=== PATIENT | female | born 2000 | race Two or more races ===

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

== ENCOUNTER 2023-06-10 00:15 | Emergency (ER) | payer MEDICAID ==
[~2023-06-10] VITALS: Ht 154.9 cm; Wt 50.3 kg
[~2023-06-10 00:15] MED LIST: ACET500T58 PO; ONDA-144 PO; SULF800T23 PO
[2023-06-10] MEDS ORDERED: IOHEXOL 300 MG/ML 100ML BOTTLE IJ ONE (01:27)
[2023-06-10 01:36] LABS: Albumin 4.5 g/dL (3.2-4.8); Alkaline Phosphatase 70 U/L (46-116); Anion Gap 8 (5-15); Aspartate Aminotransferase 13 U/L (13-40); BUN/Creatinine Ratio 9.4 (10.0-20.0); Bilirubin, Total 0.3 mg/dL (0.2-1.0); Blood Urea Nitrogen 6 mg/dL (9-23); Calcium 8.7 mg/dL (8.7-10.4); Carbon Dioxide 23 mmol/L (20-30); Chloride 106 mmol/L (98-107); Glucose 92 mg/dL (74-106); Lipase 51 U/L (12-53); Magnesium 1.9 mg/dL (1.6-2.6); Potassium 3.4 mmol/L (3.5-5.1); Sodium 137 mmol/L (136-145)
[2023-06-10 01:40] LABS: Alanine Aminotransferase 9 U/L (7-40)
[2023-06-10 01:48] LABS: Urine Bacteria FEW /hpf (None Seen); Urine Blood Negative /uL (Negative); Urine Clarity Clear (Clear); Urine Color Colorless (Yellow); Urine Protein, UAD Negative (Negative); Urine Specific Gravity 1.007 (1.001-1.035); Urine Urobilinogen Normal (Negative); Urine WBC 1 /hpf (0 - 5); Urine pH 6.5 (5.0-8.0)
[2023-06-10 01:52] LABS: Basophils # (auto) 0 10 ^3/uL (0-0.2); Basophils % (auto) 0.4 % (0.0-2.0); Eosinophils # (auto) 0.1 10 ^3/uL (0-0.8); Hematocrit 33.4 % (36.0-46.0); Lymphocytes # (auto) 1.8 10 ^3/uL (0.4-5.4); Lymphocytes % (auto) 20.7 % (10.0-50.0); Mean Corpuscular Hemoglobin 25.2 pg (28.0-32.0); Mean Corpuscular Volume 76.4 fL (80.0-100.0); Monocytes # (auto) 0.7 10 ^3/uL (0-1.3); Monocytes % (auto) 7.8 % (0.0-12.0); Neutrophils # (auto) 5.9 10 ^3/uL (1.6-8.6); Neutrophils % (auto) 70.1 % (37.0-80.0); Red Blood Cells 4.37 10^6/uL (4.0-5.20); Red Cell Distribution Width 17.5 % (11.8-14.3); White Blood Cell 8.5 10^3/uL (4.4-10.8)
[2023-06-10 02:31] VITALS: BP 141/95; PULSE 71; RESP 18; TEMP 97.8; O2SAT 97
[2023-06-10] MEDS ORDERED: POTASSIUM CHL 10 Meq TABLET PO ONE (04:15)
[2023-06-10] MEDS ORDERED: IBUP-1456 PO (04:35)
[2023-06-10] MEDS ORDERED: POLY335015 PO (04:35)
== END 2023-06-10 06:27 | disposition home or self-care (01) ==
LOC: ER 00:21
DX: N83.202 Unspecified ovarian cyst, left side (principal); R10.2 Pelvic and perineal pain; K59.01 Slow transit constipation; Z79.899 Other long term (current) drug therapy
CPT/HCPCS: 36415; 74177; 80053; 81001; 83690; 83735; 84702; 85025; 99285; Q9967

== ENCOUNTER 2024-03-03 06:34 | Inpatient (IN) | payer MEDICAID ==
[~2024-03-03] VITALS: Ht 154.9 cm; Wt 46.7 kg
[~2024-03-03 06:34] MED LIST changes: +IBUP-1456 PO; +POLY335015 PO
[2024-03-03 07:21] LABS: Basophils # (auto) 0 10 ^3/uL (0-0.2); Eosinophils # (auto) 0 10 ^3/uL (0-0.8); Eosinophils % (auto) 0.1 % (0.0-7.0); Hemoglobin 10.4 g/dL (12.2-16.2)
[2024-03-03 07:22] LABS: Urine Bacteria None Seen /hpf (None Seen)
[2024-03-03 07:23] LABS: Basophils % (auto) 0.3 % (0.0-2.0); Hematocrit 32.5 % (36.0-46.0); Lymphocytes # (auto) 0.8 10 ^3/uL (0.4-5.4); Lymphocytes % (auto) 4.9 % (10.0-50.0); Mean Corpuscular Hemoglobin 24.4 pg (28.0-32.0); Mean Corpuscular Hgb Conc. 32.1 g/dL (32.0-36.0); Mean Corpuscular Volume 76.2 fL (80.0-100.0); Monocytes # (auto) 0.6 10 ^3/uL (0-1.3); Monocytes % (auto) 3.8 % (0.0-12.0); Neutrophils # (auto) 15.2 10 ^3/uL (1.6-8.6); Neutrophils % (auto) 90.9 % (37.0-80.0); Red Blood Cells 4.27 10^6/uL (4.0-5.20); White Blood Cell 16.7 10^3/uL (4.4-10.8)
[2024-03-03] MEDS: SODIUM CHLORIDE 0.9% 1,000 ML IV ONE ×2 (07:35→09:38)
[2024-03-03 07:40] LABS: Amphetamine Screen, Urine Neg (NEGATIVE); Barbiturate Scree,Urine Neg (NEGATIVE); Benzodiazephine Screen, Urine Neg (NEGATIVE); Cannabinoid Screen, Urine Neg (NEGATIVE); Cocaine Screen, Urine Neg (NEGATIVE); Opiate Scree,Urine Neg (NEGATIVE); Phencyclidine Screen, Urine Neg (NEGATIVE)
[2024-03-03 07:43] LABS: Alanine Aminotransferase 12 U/L (7-40); Albumin 4.6 g/dL (3.2-4.8); Alkaline Phosphatase 85 U/L (46-116); Anion Gap 7 (5-15); Aspartate Aminotransferase 11 U/L (13-40); BUN/Creatinine Ratio 9.8 (10.0-20.0); Bilirubin, Total 0.3 mg/dL (0.2-1.0); Blood Urea Nitrogen 6 mg/dL (9-23); Calcium 8.9 mg/dL (8.7-10.4); Carbon Dioxide 24 mmol/L (20-30); Chloride 108 mmol/L (98-107); Glucose 111 mg/dL (74-106); Potassium 3.4 mmol/L (3.5-5.1); Sodium 139 mmol/L (136-145)
[2024-03-03 07:44] LABS: Total Protein 7.6 g/dL (5.7-8.2)
[2024-03-03 07:44] LABS: Urine Blood Negative /uL (Negative); Urine Clarity Clear (Clear); Urine Color Light-Yellow (Yellow); Urine Mucus FEW (None Seen); Urine Protein, UAD Negative (Negative); Urine Specific Gravity 1.011 (1.001-1.035); Urine Urobilinogen Normal (Negative); Urine WBC <1 /hpf (0 - 5)
[2024-03-03] MEDS: IOHEXOL 300 MG/ML 100ML BOTTLE IJ ONE (08:23)
[2024-03-03] MEDS: DOXYCYCLINE 100MG/250ML 250 ML IV ONE (08:45)
[2024-03-03] MEDS: KETOROLAC TROMETH 30 MG/ML 1ML VIAL IV ONE (08:57)
[2024-03-03] MEDS: metroNIDAZOLE 500MG/100ML 100 ML IV ONE (09:00)
[2024-03-03] MEDS: cefTRIAXone 1GM/50ML D5W 50 ML IV ONE (09:39)
[2024-03-03 09:53] VITALS: PULSE 97; RESP 12; O2SAT 97
[2024-03-03] MEDS: MORPHINE SULFATE INJ 2 MG/ml SYRG IV ONE (13:10)
[2024-03-03] MEDS: ONDANSETRON HCL 4 MG/2 ML VIAL IV ONE (13:11)
[2024-03-03] MEDS ORDERED: DOCUSATE SOD 100 MG CAP PO PRN (13:30)
[2024-03-03] MEDS ORDERED: MORPHINE SULFATE INJ 2 MG/ml SYRG IV PRN (13:30)
[2024-03-03] MEDS ORDERED: DOXYCYCLINE 100MG/250ML 250 ML IV SCH (13:30)
[2024-03-03] MEDS ORDERED: NITROGLYCERIN 0.4 MG SL TAB SL PRN (13:30)
[2024-03-03] MEDS: SODIUM CHLORIDE 0.9% 1,000 ML IV SCH (13:43)
[2024-03-03] MEDS: POTASSIUM EFFERVESENT TAB 25 MEQ PO ONE (13:49)
[2024-03-03] MEDS: metroNIDAZOLE 500MG/100ML 100 ML IV SCH (14:06)
[2024-03-03 14:22] LABS: % Iron Saturation 3.7 % (15-50)
[2024-03-03 17:20] VITALS: BP 100/59; PULSE 105; RESP 16; TEMP 98.4; O2SAT 99
[2024-03-03] MEDS: ONDANSETRON HCL 4 MG/2 ML VIAL IV PRN (17:39)
[2024-03-03] MEDS: MORPHINE SULFATE INJ 2 MG/ml SYRG IV PRN (17:40)
[2024-03-03 21:00] VITALS: BP 103/55; PULSE 107; RESP 20; TEMP 98; O2SAT 98
[2024-03-03] MEDS: DOXYCYCLINE 100MG/250ML 250 ML IV SCH (21:47)
[2024-03-04 00:54] VITALS: BP 113/61; PULSE 98; RESP 20; TEMP 98; O2SAT 96
[2024-03-04 05:00] VITALS: BP 100/51; PULSE 54; RESP 20; TEMP 98.2; O2SAT 100
[2024-03-04 05:55] LABS: Basophils # (auto) 0 10 ^3/uL (0-0.2); Eosinophils # (auto) 0 10 ^3/uL (0-0.8); Hemoglobin 8.8 g/dL (12.2-16.2); Lymphocytes # (auto) 1.2 10 ^3/uL (0.4-5.4); Monocytes # (auto) 0.7 10 ^3/uL (0-1.3); Monocytes % (auto) 6.2 % (0.0-12.0); Red Cell Distribution Width 16.8 % (11.8-14.3)
[2024-03-04 05:58] LABS: Basophils % (auto) 0.1 % (0.0-2.0); Eosinophils % (auto) 0.2 % (0.0-7.0); Hematocrit 27.1 % (36.0-46.0); Mean Corpuscular Hgb Conc. 32.5 g/dL (32.0-36.0); Mean Corpuscular Volume 76.9 fL (80.0-100.0); Neutrophils # (auto) 9.7 10 ^3/uL (1.6-8.6); Neutrophils % (auto) 83.5 % (37.0-80.0); Red Blood Cells 3.53 10^6/uL (4.0-5.20); White Blood Cell 11.7 10^3/uL (4.4-10.8)
[2024-03-04 06:09] LABS: Albumin 3.6 g/dL (3.2-4.8); Alkaline Phosphatase 65 U/L (46-116); Anion Gap 5 (5-15); Aspartate Aminotransferase 13 U/L (13-40); Calcium 8.4 mg/dL (8.5-10.1); Carbon Dioxide 24 mmol/L (20-30); Chloride 111 mmol/L (98-107); Glucose 87 mg/dL (74-106); Potassium 3.5 mmol/L (3.5-5.1); Sodium 140 mmol/L (136-145)
[2024-03-04 06:10] LABS: Bilirubin, Total 0.7 mg/dL (0.2-1.0); Total Protein 5.7 g/dL (5.7-8.2)
[2024-03-04 06:45] LABS: Alanine Aminotransferase < 9 U/L (7-40); BUN/Creatinine Ratio 9.4 (10.0-20.0); Blood Urea Nitrogen < 5 mg/dL (9-23)
[2024-03-04] MEDS: metroNIDAZOLE 500MG/100ML 100 ML IV SCH (08:14)
[2024-03-04 09:00] VITALS: BP 108/63; PULSE 111; RESP 17; TEMP 98.3; O2SAT 98
[2024-03-04 13:00] VITALS: BP 99/59; PULSE 90; RESP 16; TEMP 97.9; O2SAT 99
[2024-03-04] MEDS: cefTRIAXone 1GM/50ML D5W 50 ML IV SCH (13:45)
[2024-03-04 17:00] VITALS: BP 107/65; PULSE 96; RESP 16; TEMP 97.9; O2SAT 99
[2024-03-04 21:32] VITALS: BP 112/58; PULSE 94; RESP 16; TEMP 98.4; O2SAT 99
[2024-03-05] VITALS (7 sets, daily range): BP systolic 95–107; BP diastolic 54–69; PULSE 77–92; RESP 16–18; TEMP 97.8–98.2; O2SAT 98–100
[2024-03-05] MEDS: MORPHINE SULFATE INJ 2 MG/ml SYRG IV PRN (08:16)
[2024-03-05 12:59] LABS: Ferritin 9.5 ng/mL (10-291)
[2024-03-05 13:01] LABS: Folate (Folic Acid) 9.08 ng/mL (>5.38)
[2024-03-05 20:06] LABS: Chlamydia Trachomatis, NAA Negative (Negative); Neisseria gonorrhoeae, NAA Negative (Negative)
[2024-03-06 01:07] VITALS: BP 134/71; PULSE 73; RESP 18; TEMP 97.8; O2SAT 99
[2024-03-06 05:13] VITALS: BP 110/65; PULSE 93; RESP 18; TEMP 97.9; O2SAT 97
[2024-03-06 09:00] VITALS: BP 103/56; PULSE 97; RESP 17; TEMP 98.1; O2SAT 96
[2024-03-06 13:00] VITALS: BP 100/61; PULSE 84; RESP 17; TEMP 98.3; O2SAT 98
== END 2024-03-06 15:00 | disposition left against medical advice (07) | DRG 248 ==
LOC: ER 06:34 → OVERFLOW 13:26 → CENTRAL 17:00
PROVIDERS: ADMIT Nurse Practitioner Family; ATTEND Internal Medicine
DX: K35.33 Acute appendicitis with perforation, localized peritonitis, and gangrene, with abscess (principal); D50.9 Iron deficiency anemia, unspecified; N73.9 Female pelvic inflammatory disease, unspecified; Z53.29 Procedure and treatment not carried out because of patient's decision for other reasons; K52.9 Noninfective gastroenteritis and colitis, unspecified; E87.6 Hypokalemia; F41.9 Anxiety disorder, unspecified; N93.9 Abnormal uterine and vaginal bleeding, unspecified; Z83.3 Family history of diabetes mellitus; Z80.3 Family history of malignant neoplasm of breast; Z79.899 Other long term (current) drug therapy
CPT/HCPCS: 36415; 74177; 76856; 80053; 80307; 81001; 81025; 82607; 82728; 82746; 83540; 83550; 83615; 85025; 85045; 93971; 96361; 96365; 96366; 96368; 96375; G0378; J1885; J2405; J3490

== ENCOUNTER 2024-12-15 05:21 | Emergency (ER) | payer MEDICAID ==
[~2024-12-15] VITALS: Ht 154.9 cm; Wt 50.4 kg
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
[2024-12-15 07:20] VITALS: BP 110/65; PULSE 84; RESP 18; TEMP 98.1; O2SAT 95
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
[2024-12-15] MEDS: HYDROcodone-ACET 5/325MG TAB PO ONE (07:33)
== END 2024-12-15 07:49 | disposition home or self-care (01) ==
LOC: ER 05:21 → EEVIPCON 05:21 → ER 07:49
DX: S02.2XXA Fracture of nasal bones, initial encounter for closed fracture (principal); Z79.899 Other long term (current) drug therapy; Y08.89XA Assault by other specified means, initial encounter; Y93.89 Activity, other specified; Y92.89 Other specified places as the place of occurrence of the external cause; Y99.8 Other external cause status
CPT/HCPCS: 70200; 70450; 71046

== ENCOUNTER 2025-02-18 10:56 | Inpatient (IN) | payer MEDICAID ==
[~2025-02-18] VITALS: Ht 154.9 cm; Wt 49.9 kg
[2025-02-18] MEDS: SODIUM CHLORIDE 0.9% 1,000 ML IV SCH (03:00)
--- NOTE | 2025-02-18 11:10 | ED.PDOC ---
History of Present Illness HPI Comments 25 year old female presents to the ED for the c/c of Abnormal Vaginal Bleeding. Pt states that her bleeding started approx 3x weeks ago, and notes that her bleeding has worsened since this past Tuesday. Pt does note that she took an at home test, and the result was positive. No other factors, symptoms or modifiers at this time. Time Seen by MD: 11:07 Primary Care Provider: Radha Padron Notes: Nurses Notes, Medications, Allergies Allergies: Coded Allergies: NO KNOWN ALLERGIES (Unverified , 01/07/19) Home Meds Active Scripts Polyethylene Glycol 3350 (Miralax) 17 Gm Pow, 17 GM PO DAILY for 3 Days, #3 POW Prov:NEHA GR OPERATIONS ENGINEER 06/10/23 Ibuprofen (Ibuprofen) 800 Mg Tab, 1 TAB PO TID PRN for 14 Days, #42 TAB 1 Refill Prov:NEHA GRP 06/10/23 Acetaminophen (Acetaminophen) 500 Mg Tab, 500 MG PO QIDP, #30 TAB 0 Refills Prov:CHARITY BRISENO 06/28/22 Ondansetron (Zofran) 4 Mg Tab, 1 TAB PO Q8HPRN, #14 TAB 0 Refills Prov:CHARITY BRISENO 06/28/22 Sulfamethoxazole W/Trimethopri (Trimethoprim/Sulfamethoxa) 1 Tab Tab, 1 TAB PO BID for 7 Days, #14 TAB 0 Refills Prov:CHARITY BRISENO 06/28/22 Information Source: Patient Mode of Arrival: Ambulatory Severity: Mild Timing: Weeks Prehospital treatment: None Past Medical History PAST MEDICAL HISTORY: Denies Surgical History: Denies all surgeries 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 Family History Family History: Reviewed,noncontributory to illness Social History Smoker: Non-Smoker Alcohol: Denies ETOH Use Drugs: Denies Drug Use Lives In: Home Constitutional: denies: chills, diaphoresis, fatigue, fever, malaise, sweats, weakness, others EENTM: denies: blurred vision, double vision, ear bleeding, ear discharge, ear drainage, ear pain, ear ringing, eye pain, eye redness, hearing loss, mouth pain, mouth swelling, nasal discharge, nose bleeding, nose congestion, nose pain, photophobia, tearing, throat pain, throat swelling, voice changes, others Respiratory: denies: cough, hemoptysis, orthopnea, SOB at rest, shortness of breath, SOB with excertion, stridor, wheezing, others Cardiovascular: denies: chest pain, dizzy spells, diaphoresis, Dyspnea on exertion, edema, irregular heart beat, left arm pain, lightheadedness, palpitations, PND, syncope, others Gastrointestinal: denies: abdomen distended, abdominal pain, blood streaked bowels, constipated, diarrhea, dysphagia, difficulty swallowing, hematemesis, melena, nausea, poor appetite, poor fluid intake, rectal bleeding, rectal pain, vomiting, others Genitourinary: reports: abnormal vagina bleeding; denies: burning, dyspareunia, dysuria, flank pain, frequency, hematuria, incontinence, pain, , vagina discharge, urgency, others Neurological: denies: dizziness, fainting, headache, left sided numbness, left sided weakness, numbness, paresthesia, pre-existing deficit, right sided numbness, right sided weakness, seizure, speech problems, tingling, tremors, weakness, others Musculoskeletal: denies: back pain, gout, joint pain, joint swelling, muscle pain, muscle stiffness, neck pain, others Integumetry: denies: bruises, change in color, change in hair/nails, dryness, laceration, lesions, lumps, rash, wounds, others Allergic/Immunocompromised: denies: Difficulty Healing, Frequent Infections, Hives, Itching, others Hematologic/Lymphatic: denies: anemia, blood clots, easy bleeding, easy bruising, swollen glands, others Endocrine: denies: excessive hunger, excessive sweating, excessive thirst, excessive urination, flushing, intolerance to cold, intolerance to heat, unexplained weight gain, unexplained weight loss, others Psychiatric: denies: anxiety, bipolar disorder, depression, hopeless, panic disorder, schizophrenia, sleepless, suicidal, others All Other Systems: Reviewed and Negative Physical Exam General Appearance: Moderate Distress HEENT: Normal ENT Inspection, Pharynx Normal, TMs Normal Neck: Full Range of Motion, Non-Tender, Normal, Normal Inspection Respiratory: Chest Non-Tender, Lungs Clear, No Accessory Muscle Use, No Respiratory Distress, Normal Breath Sounds Cardiovascular: No Edema, No JVD, No Murmur, No Gallop, Normal Peripheral Pulses, Regular Rate/Rhythm Breast Exam: Deferred Gastrointestinal: No Organomegaly, No Pulsatile Mass, Normal Bowel Sounds, RLQ, Soft, Tenderness Genitalia: Deferred Pelvic: Deferred Rectal: Deferred Extremities: No calf tenderness, Normal capillary refill, Normal inspection, Normal range of motion, Non-tender, No pedal edema Musculoskeletal : Apperance: Normal Neurologic: Alert, turnaround planner II-XII nml as Tested, No Motor Deficits, Normal Affect, Normal Mood, No Sensory Deficits Cerebellar Function: Normal Reflexes: Normal Skin: Dry, Normal Color, Warm Lymphatic: No Adenopathy Was a procedure done? Was a procedure done?: No Differential Dx Considerations may include: Ectopic , intrauterine , threatened X-Ray, Labs, Meds, VS Vital Signs Date Time Temp Pulse Resp B/P (MAP) Pulse Ox O2 Delivery O2 Flow Rate FiO2 02/18/25 15:05 84 18 117/61 (79) 99 02/18/25 12:50 73 18 99 Room Air 02/18/25 12:50 73 18 107/70 (82) 99 02/18/25 12:23 Room Air* 0 21 02/18/25 11:15 98.5 82 16 110/60 (77) 100 98.5 Lab Test 02/18/25 12:14 02/18/25 11:21 Range/Units Beta HCG, Quantitative 7816.2 H 1.5-4.2 mIU/mL Urine Color Colorless Yellow Urine Clarity Clear Clear Urine pH 6.5 5.0-9.0 Urine Specific [place] 1.006 1.001-1.035 Urine Protein Negative Negative Urine Ketones Negative Negative Urine Blood 3+ H Negative /uL Urine Nitrite Negative Negative Urine Bilirubin Negative Negative Urine Urobilinogen Normal Negative mg/dL Urine Leukocyte Esterase 2+ Negative /uL Urine RBC 1 0 - 4 /hpf Urine Microscopic WBC 15 H 0-5 /HPF Urine Squamous Epithelial Cells Few <5 /hpf Urine Bacteria None seen None Seen /hpf Urine Glucose Normal Normal mg/dL IMPRESSION: 1. No evidence of acute disease. Impression: Right adnexal region echogenic lesion with peripheral hypervascularity measuring 3.2 x 3.4 cm, highly concerning for ectopic in the setting of positive beta HCG. Findings discussed with KRISH ROMAN at 02/18/2025 03:42 PM, and ac knowledged receipt and understanding of the findings. Small amount of free pelvic fluid. Left ovarian/ adnexal region complex appearing cystic lesion with internal echoes, through transmission measuring 6.2 x 3.6 cm which could represent endometrioma, abscess, other fluid collection, cystic neoplasm. Recommend CT abdomen pelvis with contrast and MRI pelvis with and without contrast to evaluate. IV Hep-Lock was established After reviewing the ultrasound, we did contact Dr. Matthews who is the OBGYN on-call The urine test is also positive for UTI The patient had a CBC done The quantitative hCG is 7816 We typed and screen the patient as well. At this time, the patient is being admitted to the hospital OR by Dr. Matthews to undergo surgery for the ectopic We did speak with the patient and she understands and is in agreement with the management Images Reviewed?: Images reviewed and evaluated by me Time of 1ST Reevaluation: 11:37 Reevaluation 1ST: Unchanged Patient Education/Counseling: Diagnosis, Treatment, Prognosis Family Education/Counseling: No Family Present SEPSIS Sepsis Screen Physician Orders Ob Ultrasound Comp Less 14wks (02/18/25 14:23) Heplock Iv (02/18/25 ) Type And Screen (02/18/25 15:42) PTPTT (02/18/25 15:42) Prothrombin Time W/ Inr (02/18/25 15:41) Comprehensive Metabolic Panel (02/18/25 15:41) Chest Two Views Routine (02/18/25 15:41) Npo (Nothing By Mouth) Diet (02/18/25 Dinner) Complete Blood Count (02/18/25 15:46) Flying Shear Operator To Or (02/18/25 15:46) Transfuse Packed Cells (02/18/25 16:06) Type And Screen (02/18/25 16:06) Packedcells -Active Bleeding (02/18/25 16:06) Communication Order (02/18/25 16:06) Obtain Consent For: (02/18/25 16:11) Vital Signs Date Time Temp Pulse Resp B/P (MAP) Pulse Ox O2 Delivery O2 Flow Rate FiO2 02/18/25 15:05 84 18 117/61 (79) 99 02/18/25 12:50 73 18 99 Room Air 02/18/25 12:50 73 18 107/70 (82) 99 02/18/25 12:23 Room Air* 0 21 02/18/25 11:15 98.5 82 16 110/60 (72) 100 98.5 Departure 1 Departure Time of Disposition: 16:30 Impression: Primary Impression: Ectopic Qualified Codes: O00.90 - Unspecified ectopic without intrauterine Disposition: ADMITTED INPATIENT Admit to: Med Surg Condition: Fair Critical Care Note Critical Care Time?: No Stability Stability form required: Yes Unstable for transfer: ED Physician Assesment (Clinical assesment) Heart Score Heart Score: Heart Score Response (Comments) Value History N/A 0 EKG N/A 0 Age N/A 0 Risk Factors N/A 0 Troponin N/A 0 Total 0 I personally scribed for KRISH ROMAN MD ([email or web address]) on 02/18/25 at 11:10. Electronically submitted by Albino Garcia ([email or web address]). I personally scribed for KRISH ROMAN MD ([email or web address]) on 02/18/25 at 16:29. Electronically submitted by Albino Garcia ([email or web address]). I personally scribed for KRISH ROMAN MD ([email or web address]) on 02/18/25 at 16:29. Electronically submitted by Albino Garcia ([email or web address]). KRISH ROMAN MD Feb 18, 2025 11:10
[2025-02-18 14:31] LABS: Urine Bacteria None Seen /hpf (None Seen)
[2025-02-18 14:40] LABS: Urine Blood 3+ /uL (Negative); Urine Clarity Clear (Clear); Urine Color Colorless (Yellow); Urine Protein, UAD Negative (Negative); Urine Specific Gravity 1.006 (1.001-1.035); Urine Squamous Epithelial Cell FEW /hpf (<5); Urine Urobilinogen Normal (Negative); Urine WBC 15 /HPF (0-5); Urine pH 6.5 (5.0-9.0)
--- NOTE | 2025-02-18 15:46 | DVHINCON2 ---
Date of service: Feb 18, 2025 Referring Physician [facility] attending history and physical exam Reason for Consultation Rule out ectopic vaginal bleeding pelvic pain History of Present Illness History Source: Patient (Patient unknown last menstrual period as she has irregular periods. She had a previous miscarriage. She appears to have ruptured ectopic with acute abdominal and peritoneal signs recommended immediate diagnostic laparoscopy possible open laparotomy removal of ectopic possible right or left salpingo oophorectomy and evacuation of hemoperitoneum.Risks consent we discussed the risks benefits complications alternatives not limited to decreased fertility increased risk of a subsequent ectopic possibility of ruptured hemorrhagic cyst with a miscarried intrauterine . Damage to adjacent organs bowel bladder vessels nerves acute chronic pain transfusion hep B HIV transfusion reaction my stroke DVT PE. All these risks discussed with her mother as well as the fact that she may need in vitro fertilization in the future if her alternate tube to the ectopic as already damage and non patent. All questions answered patient and mother adamantly wants to proceed. Pod drains) Home Meds Active Scripts Polyethylene Glycol 3350 (Miralax) 17 Gm Pow, 17 GM PO DAILY for 3 Days, #3 POW Prov:NEHA RG 06/10/23 Ibuprofen (Ibuprofen) 800 Mg Tab, 1 TAB PO TID PRN for 14 Days, #42 TAB 1 Refill Prov:NEHA GR 06/10/23 Acetaminophen (Acetaminophen) 500 Mg Tab, 500 MG PO QIDP, #30 TAB 0 Refills Prov:CHARITY BRISENO 06/28/22 Ondansetron (Zofran) 4 Mg Tab, 1 TAB PO Q8HPRN, #14 TAB 0 Refills Prov:CHARITY BRISENO 06/28/22 Sulfamethoxazole W/Trimethopri (Trimethoprim/Sulfamethoxa) 1 Tab Tab, 1 TAB PO BID for 7 Days, #14 TAB 0 Refills Prov:CHARITY BRISENO 06/28/22 Current Meds None Chief Complaint of Abdominal/F: Abdominal pain, Other (Vaginal bleeding) Past Medical History Cardiac: No pertinent Hx Pulmonary: No pertinent Hx Central Nervous System: No pertinent Hx GI: No pertinent Hx Hemotology/Oncology: No pertinent Hx Hepatobiliary: No pertinent Hx Psychiatric: No pertinent Hx Musculoskeletal: No pertinent Hx Rheumotologic: No pertinent Hx Infectious Disease: No peritnent Hx ENT: No pertinent Hx Renal/: No pertinent Hx Endocrine: No pertinent Hx Dermatology: No pertinent Hx Past Surgical History: No pertinent Hx Family History: No pertinent Hx Patient Family History: Diabetes mellitus G8 MOTHER FH: breast cancer G8 MOTHER Smoker: No Hx (Negative) Alocohol: None Drugs: None Domestic Violence: Neg Review of Systems Constitutional: No symptom reported Ears, Nose, & Throat: No symptom reported Eyes: No symptom reported Pulmonary/Respiratory: No symptom reported Cardiovascular: No symptom reported Gastrointestinal: No symptom reported Genitourinary: No symptom reported Musculoskeletal: No symptom reported Skin: No symptom reported Psychiatric: No symptom reported Endocrine: No symptom reported Hemotologic/Lymphatic: No symptom reported H&P Exam Vital Signs Vital Signs Date Time Temp Pulse Resp B/P (MAP) Pulse Ox O2 Delivery O2 Flow Rate FiO2 02/18/25 15:05 84 18 117/61 (79) 99 02/18/25 12:50 Room Air 02/18/25 12:23 0 21 02/18/25 11:15 98.5 98.5 General Appeara: Well developed Abdominal Exam: Other (Positive bowel sounds rebound tenderness greater on the left side) Abdominal Pain Onset Location: LLQ Rectal Exam: Deferred Back Exam: Normal inspection Pelvic Exam: Other (Cervical motion tenderness cervix closed mild venous bleeding fullness left adnexa) Motor/Sensory: Normal sensory function Neuro/Mental St: Alert, Oriented Appearance: Appropriate appearance Thoughts/Psych: Normal thought pattern Skin Exam: Normal inspection Lymphatic: Normal inspection Labs/Xrays Labs Test 02/18/25 12:14 02/18/25 11:21 Range/Units Beta HCG, Quantitative 7816.2 H 1.5-4.2 mIU/mL Urine Color Colorless Yellow Urine Clarity Clear Clear Urine pH 6.5 5.0-9.0 Urine Specific [place] 1.006 1.001-1.035 Urine Protein Negative Negative Urine Ketones Negative Negative Urine Blood 3+ H Negative /uL Urine Nitrite Negative Negative Urine Bilirubin Negative Negative Urine Urobilinogen Normal Negative mg/dL Urine Leukocyte Esterase 2+ Negative /uL Urine RBC 1 0 - 4 /hpf Urine Microscopic WBC 15 H 0-5 /HPF Urine Squamous Epithelial Cells Few <5 /hpf Urine Bacteria None seen None Seen /hpf Urine Glucose Normal Normal mg/dL Assessment/Plan Admitting Diagnosis: Ruptured ectopic acute peritoneal signs Plan Diagnostic laparoscopy evacuation of hemoperitoneum removal of ectopic possible partial or full left or right salpingo-oophorectomy and dilation curettage. Plan discussed with: Patient, Other (Mother patient) RANDI CODY DO Feb 18, 2025 15:46
--- NOTE | 2025-02-18 15:46 | DVH ---
Technique: Real-time ultrasound images through the pelvis using a transabdominal transducer. For bett er evaluation of the ovaries and endometrial stripe, an endovaginal transducer was used. Indication: sob Comparison: 06/10/2023 Findings: The uterus measures 7.4 cm. The endometrial stripe measures 5 mm. There are no focal masses. There is no abnormal flow in the endometrium. Right ovary measures 2.7 x 1.6 x 3.1 cm. Normal flow on color doppler images. In the right adnexal re gionm, there is echogenic lesion with some peripheral hypervascularity measuring 3.2 x 3.4 cm . There is a small internal cystic focus within this lesion. Left ovary measures 3 x 2.5 x 2.4 cm. Normal flow on color doppler images. In the left adnexal regio n, there is a complex collection with internal echoes and through transmission measuring 6.2 x 3.6 cm . Small amount of free pelvic fluid. Impression: Right adnexal region echogenic lesion with peripheral hypervascularity measuring 3.2 x 3.4 cm, highly concerning for ectopic in the setting of positive beta HCG. Findings discussed with KRISH CURRY at 02/18/2025 03:42 PM, and acknowledged receipt and understanding of the findings. Small amount of free pelvic fluid. Left ovarian/ adnexal region complex appearing cystic lesion with internal echoes, through transmissi on measuring 6.2 x 3.6 cm which could represent endometrioma, abscess, other fluid collection, cystic neoplasm. Recommend CT abdomen pelvis with contrast and MRI pelvis with and without contrast to sudha pratt.
--- NOTE | 2025-02-18 16:23 | DVH ---
CHEST RADIOGRAPH Indication: pre op Technique: Frontal and lateral view of the chest was obtained Comparison: XY CHEST TWO VIEWS ROUTINE on DOS: 12/15/24 FINDINGS: Lines and Tubes: None Lungs: Clear Pleura: No effusion. No pneumothorax. Cardiomediastinal contours: Unremarkable Bones: Unremarkable IMPRESSION: 1. No evidence of acute disease.
[2025-02-18] MEDS ORDERED: VASOPRESSIN 20 UNIT/ML ONE (16:24)
[2025-02-18 16:53] LABS: Basophils # (auto) 0 10 ^3/uL (0-0.2); Basophils % (auto) 0.5 % (0.0-2.0); Eosinophils # (auto) 0.1 10 ^3/uL (0-0.8); Hematocrit 34.5 % (36.0-46.0); Hemoglobin 11.1 g/dL (12.2-16.2); Lymphocytes # (auto) 1.7 10 ^3/uL (0.4-5.4); Lymphocytes % (auto) 23.7 % (10.0-50.0); Mean Corpuscular Hemoglobin 25.1 pg (28.0-32.0); Mean Corpuscular Hgb Conc. 32.3 g/dL (32.0-36.0); Mean Corpuscular Volume 77.8 fL (80.0-100.0); Monocytes # (auto) 0.4 10 ^3/uL (0-1.3); Monocytes % (auto) 6.1 % (0.0-12.0); Neutrophils # (auto) 4.9 10 ^3/uL (1.6-8.6); Neutrophils % (auto) 68.7 % (37.0-80.0); Nucleated Red Blood Cells % 0.1 %; Platelet Count (auto) 346 10^3/uL (140-450); Red Blood Cells 4.43 10^6/uL (4.0-5.20); Red Cell Distribution Width 17.1 % (11.8-14.3); White Blood Cell 7.2 10^3/uL (4.4-10.8)
[2025-02-18 17:02] LABS: Alanine Aminotransferase 13 U/L (7-40); Alkaline Phosphatase 77 U/L (46-116); Anion Gap 12 (5-15); Aspartate Aminotransferase 17 U/L (<34); BUN/Creatinine Ratio 9.2 (10.0-20.0); Bilirubin, Total 0.3 mg/dL (0.2-1.0); Calcium 9.9 mg/dL (8.7-10.4); Carbon Dioxide 21 mmol/L (20-31); Glucose 83 mg/dL (74-106); Potassium 3.7 mmol/L (3.5-5.1); Sodium 140 mmol/L (136-145); Total Protein 8.1 g/dL (5.7-8.2)
[2025-02-18 17:12] LABS: Albumin 4.9 g/dL (3.2-4.8); Blood Urea Nitrogen 6 mg/dL (9-23); Chloride 107 mmol/L (98-107)
[2025-02-18 17:38] LABS: INR 1.03 (0.9-1.15); Partial Thromboplastin Time 27.3 SEC (24.5-34.5); Prothrombin Time 10.9 sec (9.3-11.8)
[2025-02-18] MEDS ORDERED: SUCCINYLCHOLINE CHLORIDE 20 MG/ML 10ML VIAL IV ONE (18:11)
[2025-02-18] MEDS: ceFAZolin 2 GM/D5W50ml 50 ML IV ONE (18:12)
[2025-02-18] MEDS ORDERED: MIDAZOLAM HCL 2MG/2ML 2ml VIAL (1mg/ml) ONE (18:13)
[2025-02-18] MEDS ORDERED: fentaNYL CITRATE 100 MCG/2 ML VL ONE (18:13)
[2025-02-18] MEDS ORDERED: ROCURONIUM 10MG/ML 10ML VIAL IV ONE (18:13)
[2025-02-18] MEDS ORDERED: ONDANSETRON HCL 4 MG/2 ML VIAL ONE (18:14)
[2025-02-18] MEDS ORDERED: DexAMETHasone SOD PHOS 10MG/1ML VIAL INJ ONE (18:14)
[2025-02-18] MEDS ORDERED: LIDOCAINE 2% (LOCAL ANESTH.) PF 5ml SDV ONE (18:14)
--- NOTE | 2025-02-18 18:25 | DVHOP2 ---
Operative Report - 2 Report Details Date: 02/18/25 Preop Diagnosis: Ruptured ectopic Postop Diagnosis: Right hemorrhagic 5 cm ovarian cysts, posterior cul-de-sac filmy adhesions, right ampullary ruptured hemorrhagic ectopic Surgeon: Serina Cody Anesthesiologist: Devonte AVILA Anesthesia: General Drains: Hines removed intraoperatively Consent: The patient was informed of the risks and benefits of the procedure. These include but are not limited to complications of anesthesia, postoperative infection, incomplete relief of symptoms, recurrence of symptoms, damage to blood vessels, nerves and tendons, deep venous thrombosis, pulmonary embolism and possible need for repeat surgery in the future. Estimated Blood Loss: 50 cc hemoperitoneum space cc Fluids: See anesthesia log Findings: Hemoperitoneum no evidence of intrauterine POC is Indications for Surgery: Ruptured ectopic acute peritoneal abdominal signs Name of Procedure Performed Diagnostic laparoscopy evacuation of hemoperitoneum, partial right salpingostomy and removal of ectopic drainage of left large 5 cm hemorrhagic ovarian cyst, lysis of adhesions Procedure Details Procedure Details: Patient taken the operating room placed supine position general anesthesia performed without difficulty she was then prepped and draped sterile fashion placed in Hussein stirrups examined under anesthesia shows her have a fingertip dilated cervical os with mild venous oozing no evidence of tissue. Uterus sounded 7 cm and a narrow sharp curette was used to perform fractional D and C ECC EMC taken no evidence of any tissue or clots within the uterus. Kroner uterine manipulator was placed peritoneum redraped gloves and gowns changed and attention turned to the abdomen. An infraumbilical incision made for 5 mm port towel clip used to tent the anterior abdominal rectus fascia anteriorly Veress needle placed water test flowed freely pneumoperitoneum 3 L CO2 performed. Veress removed in a vet Visiport bladeless 5 mm trocar placed without evidence of internal organ damage. Cursory observations was a large 4-5 cm hemorrhagic left ovarian cyst a ruptured right ampullary ectopic appearing tube and minimal hemoperitoneum. I subsequently placed 2 additional ports 1 5 mm suprapubically and 1 right lower quadrant 12 mm. I attempted to perform a right salpingostomy with excessive bleeding of which I used needle cautery and I could not control it and it appeared that the ectopic had done extensive damage to the ampullary region of the right tube elected at this point to use a Endo-MONSTER vascular white load to clamp across the ampullary region of the right tube and remove the tube and ectopic. The tube and ectopic were placed in the anterior cul-de-sac. I then subsequently used a 5 mm endo clip serially to assure the staple margin and control the bleeding. Copiously irrigated good hemostasis was achieved. Attention then turned to the left hemorrhagic ovarian appearing cyst was grasped with the atraumatic grasper adjacent to the ovary and it was drained using cautery drilling which had old hemorrhagic blood within it. Suspicious for a endometrioma but not characteristic as it was very thin watery blood uncharacteristic of endometrioma chocolate cyst. We copiously irrigated placed the ampullary region of the right tube with ectopic in a 10 mm endobag and it was removed through the 10 mm port. Again copiously irrigating and assuring all surgical margins were free of bleeding; Adriano-France was used to close the 12 mm port rectus fascia; wounds worse copiously irrigated and the skin was closed with 4-0 Vicryl subcuticular with Dermabond. Instrument sponge lap count correct x2. Attention then returned to the vagina where the Kroner cervical manipulator was removed and I visualized the cervix to have excellent hemostasis. Patient taken recovery room in stable condition and her mother was called at patient's request Lilian [phone]. Findings in postoperative care were discussed as well as intraoperative surgery. We also reviewed signs and symptoms of postop complications and if they were to occur she is to return patient to the ER [facility] she will be observed overnight these were not limited to severe uncontrolled pain heavy uncontrolled uterine vaginal bleeding or fever persistent over 100. Patient instructed to have close follow up 1-2 weeks or p. r.n.. Specimen: Partial salpingectomy tubal contents Condition Guarded Disposition Patient in PACU and was taken to [facility] floor. RANDI CODY DO Feb 18, 2025 18:25
[2025-02-18] MEDS ORDERED: KETOROLAC TROMETH 30 MG/ML 1ML VIAL ONE (18:35)
[2025-02-18] MEDS: LIDOCAINE W/ EPINEPHRINE 1% 20ML VIAL ONE (18:40)
[2025-02-18] MEDS: BUPIVACAINE 0.5% P/F INJ 10 ML VIAL ONE (18:40)
[2025-02-18] MEDS ORDERED: HYDROmorphone HCL 2 MG/ML VL/or syr ONE (18:43)
[2025-02-18] MEDS ORDERED: SUGAMMADEX 200mg/2ml Vial (100MG/ML) IV ONE (19:06)
[2025-02-18 19:25] VITALS: PULSE 83; RESP 17; O2SAT 100
[2025-02-18] MEDS ORDERED: HYDROmorphone HCL 2 MG/ML VL/or syr IV PRN (19:30)
[2025-02-18] MEDS ORDERED: METOCLOPRAMIDE HCL 5MG/ml INJ 2ml VIAL IV ONE (19:30)
[2025-02-18] MEDS ORDERED: ONDANSETRON HCL 4 MG/2 ML VIAL IV ONE (19:30)
[2025-02-18] MEDS ORDERED: ACETAMINOPHEN IV 100 ML IV ONE (19:43)
[2025-02-18 19:45] VITALS: PULSE 75; RESP 12; O2SAT 100
[2025-02-18] MEDS ORDERED: MORPHINE SULFATE 4 MG/ML SYR/VIAL IV PRN (19:45)
[2025-02-18] MEDS ORDERED: NITROGLYCERIN 0.4 MG SL TAB SL PRN (19:45)
[2025-02-18] MEDS ORDERED: ONDANSETRON HCL 4 MG/2 ML VIAL IV PRN (19:45)
[2025-02-18] MEDS ORDERED: MORPHINE SULFATE INJ 2 MG/ml SYRG IV PRN ×2 (19:45)
[2025-02-18] MEDS: ACETAMINOPHEN IV 1000 MG/100ML (10MG/ML) IV ONE (19:46)
[2025-02-18 20:52] VITALS: BP_SYST 106; BP_SYST 110; BP_DIAS 63; BP_DIAS 68; PULSE 73; PULSE 82; RESP 18; RESP 19; TEMP 97.4; TEMP 98; O2SAT 100
[2025-02-19] MEDS: ACETAMINOPHEN 500 MG TAB or CAP PO PRN (00:56)
[2025-02-19 01:00] VITALS: BP 100/58; PULSE 73; RESP 19; TEMP 98.9; O2SAT 98
[2025-02-19 05:00] VITALS: BP 94/51; PULSE 66; RESP 17; TEMP 97.9; O2SAT 98
--- NOTE | 2025-02-19 06:05 | DVHPN2 ---
Chief Complaints Patient reports: No new complaints, Feels better Nursing reports: No new complaints (Pain controlled urinating ambulating tolerating her diet), No chest pain, No dizziness, No cough Objective Vitals Vital Signs Date Time Temp Pulse Resp B/P (MAP) Pulse Ox O2 Delivery O2 Flow Rate FiO2 02/19/25 05:00 97.9 66 17 94/51 (65) 98 97.9 02/18/25 20:52 Room Air* 0 21 Medications Current Medications Medications (Trade) Dose Ordered Sig/Yanci Route PRN Reason Start Time Stop Time Status Last Admin Acetaminophen (Tylenol Tablet Or Capsule) 500 mg Q6HP PRN PO TEMP GREATER THAN 100.4 02/18/25 19:45 02/19/25 00:56 Acetaminophen/ Hydrocodone Bitart (Dennison 5/325MG Tab) 1 tab 5XD PRN PO BREAKTHROUGH PAIN 02/18/25 19:45 Morphine Sulfate 2 mg Q30M PRN IV FOR CHEST PAIN 02/18/25 19:45 Morphine Sulfate 2 mg Q4HP PRN IV SEVERE PAIN (7-10 PAIN SCALE) 02/18/25 19:45 Nitroglycerin (Ntrostat Sublingual) 0.4 mg Q5MINP PRN SL FOR CHEST PAIN 02/18/25 19:45 Ondansetron HCl (Zofran) 4 mg Q4HP PRN IV NAUSEA / VOMITING 02/18/25 19:45 Sodium Chloride 1,000 ml @ 125 mls/hr Q8H IV 02/18/25 19:45 02/18/25 03:00 General: Normal Lungs: Normal Cardiovascular: Normal Abdominal: Normal (Wounds) Musculoskeletal: Normal Extremities: Normal, No clubbing Skin: Normal Neurological: Normal Studies Laboratory Tests 02/18/25 12:14 Test 02/18/25 12:14 Range/Units Serum Glucose 83 74-106 mg/dL Ass/Plan Plan top day 1 stable improved See discharge summary see discharge orders. RANDI CODY DO Feb 19, 2025 06:05
--- NOTE | 2025-02-19 06:09 | DVHDS2 ---
Discharge Summary Date of Admission Feb 18, 2025 at 19:34 Date of Discharge: Feb 18, 2025 Admitting Diagnosis Ruptured ectopic Labs/Diagnostic Data: Laboratory Results Test 02/18/25 12:15 02/18/25 12:14 02/18/25 11:21 Prothrombin Time 10.9 sec (9.3-11.8) Prothrombin Time INR 1.03 (0.9-1.15) Activated Partial Thromboplast Time 27.3 SEC (24.5-34.5) White Blood Count 7.2 10^3/uL (4.4-10.8) Red Blood Count 4.43 10^6/uL (4.0-5.20) Hemoglobin 11.1 g/dL (12.2-16.2) Hematocrit 34.5 % (36.0-46.0) Mean Corpuscular Volume 77.8 fL (80.0-100.0) Mean Corpuscular Hemoglobin 25.1 pg (28.0-32.0) Mean Corpuscular Hemoglobin Concent 32.3 g/dL (32.0-36.0) Red Cell Distribution Width 17.1 % (11.8-14.3) Platelet Count 346 10^3/uL (140-450) Mean Platelet Volume 9.4 fL (6.9-10.8) Neutrophils (%) (Auto) 68.7 % (37.0-80.0) Lymphocytes (%) (Auto) 23.7 % (10.0-50.0) Monocytes (%) (Auto) 6.1 % (0.0-12.0) Eosinophils (%) (Auto) 1.0 % (0.0-7.0) Basophils (%) (Auto) 0.5 % (0.0-2.0) Neutrophils # (Auto) 4.9 10 ^3/uL (1.6-8.6) Lymphocytes # (Auto) 1.7 10 ^3/uL (0.4-5.4) Monocytes # (Auto) 0.4 10 ^3/uL (0-1.3) Eosinophils # (Auto) 0.1 10 ^3/uL (0-0.8) Basophils # (Auto) 0 10 ^3/uL (0-0.2) Nucleated Red Blood Cells 0.1 % Sodium Level 140 mmol/L (136-145) Potassium Level 3.7 mmol/L (3.5-5.1) Chloride Level 107 mmol/L (98-107) Carbon Dioxide Level 21 mmol/L (20-31) Anion Gap 12 (5-15) Blood Urea Nitrogen 6 mg/dL (9-23) Creatinine 0.65 mg/dL (0.550-1.02) Glomerular Filtration Rate Calc 125 mL/min (>90) BUN/Creatinine Ratio 9.2 (10.0-20.0) Serum Glucose 83 mg/dL (74-106) Calcium Level 9.9 mg/dL (8.7-10.4) Total Bilirubin 0.3 mg/dL (0.2-1.0) Aspartate Amino Transferase (AST) 17 U/L (<34) Alanine Aminotransferase (ALT) 13 U/L (7-40) Alkaline Phosphatase 77 U/L (46-116) Total Protein 8.1 g/dL (5.7-8.2) Albumin 4.9 g/dL (3.2-4.8) Beta HCG, Quantitative 7816.2 mIU/mL (1.5-4.2) Urine Color Colorless (Yellow) Urine Clarity Clear (Clear) Urine pH 6.5 (5.0-9.0) Urine Specific [place] 1.006 (1.001-1.035) Urine Protein Negative (Negative) Urine Ketones Negative (Negative) Urine Blood 3+ /uL (Negative) Urine Nitrite Negative (Negative) Urine Bilirubin Negative (Negative) Urine Urobilinogen Normal mg/dL (Negative) Urine Leukocyte Esterase 2+ /uL (Negative) Urine RBC 1 /hpf (0 - 4) Urine Microscopic WBC 15 /HPF (0-5) Urine Squamous Epithelial Cells Few /hpf (<5) Urine Bacteria None seen /hpf (None Seen) Urine Glucose Normal mg/dL (Normal) Other Laboratory Tests 02/18/25 12:14 Brief Hx & Hospital Course: Patient admitted taken the OR emergently where diagnostic laparoscopy performed partial right salpingectomy ectopic removal evacuation of hemoperitoneum and drainage of 5 cm left hemorrhagic ovarian cyst. Operations or Procedures None Diagnostic laparoscopy evacuation of hemoperitoneum, partial right salpingostomy and removal of ectopic drainage of left large 5 cm hemorrhagic ovarian cyst, lysis of adhesions Condition at Discharge: Good Final Diagnosis/Problems List Right hemorrhagic 5 cm ovarian cysts, posterior cul-de-sac filmy adhesions, right ampullary ruptured hemorrhagic ectopic Discharge Disposition: Home Discharge Instruct/Medications Diet: Regular Activity: Light activity Activity comment: Pelvic rest 2 weeks avoid 12 weeks Follow Up/Referral: Patient to follow up [address] [facility] for wound check and pathology review Medications: Will call prescription [facility] [address] postop day 1 for antibiotic which she should finish as well as p.r.n. Rhine Discharge Statement: "Patient was advised to return to the ER or call 911 if any headaches, dizziness, shortness of breath, chest pain, abdominal pain, bleeding, fevers, or worsening of medical condition. Patient was counseled about treatment plan, medications, possible side effects, patientverbalized understanding. All questions were answered to the best of my ability. This discharge took greater then 30 minutes in planning, reviewing documentation, counseling the patient, and discussing with other team members." ASSESSMENT ASSESSMENT Assessment Right hemorrhagic 5 cm ovarian cysts, posterior cul-de-sac filmyadhesions, right ampullary ruptured hemorrhagic ectopic Visit Coding OBGYN Date of Service: Feb 19, 2025 Billing Provider: RANDI MATTHEWS DO FISH CHECKER Common Visit Codes: 98968-[id number] INP/OBS CARE(HIGH) FISH CHECKER Procedure Codes: 12270-WCZ.SURG:W/LYSIS OF ADHESIONS, 41287-[id number] TX OF ECTOPIC PREG RANDI MATTHEWS DO Feb 19, 2025 06:09
[2025-02-19 06:26] LABS: Basophils # (auto) 0 10 ^3/uL (0-0.2); Eosinophils # (auto) 0 10 ^3/uL (0-0.8); Hematocrit 29.1 % (36.0-46.0); Hemoglobin 9.6 g/dL (12.2-16.2); Lymphocytes # (auto) 0.6 10 ^3/uL (0.4-5.4); Monocytes # (auto) 0.3 10 ^3/uL (0-1.3)
[2025-02-19 06:30] LABS: Basophils % (auto) 0.1 % (0.0-2.0); Lymphocytes % (auto) 5.2 % (10.0-50.0); Mean Corpuscular Hemoglobin 25.5 pg (28.0-32.0); Mean Corpuscular Volume 77.3 fL (80.0-100.0); Monocytes % (auto) 2.2 % (0.0-12.0); Neutrophils # (auto) 10.8 10 ^3/uL (1.6-8.6); Neutrophils % (auto) 92.5 % (37.0-80.0); Platelet Count (auto) 307 10^3/uL (140-450); Red Blood Cells 3.76 10^6/uL (4.0-5.20); Red Cell Distribution Width 16.9 % (11.8-14.3); White Blood Cell 11.7 10^3/uL (4.4-10.8)
[2025-02-19] MEDS: HYDROcodone-ACET 5/325MG TAB PO PRN (06:48)
[2025-02-19 08:00] VITALS: PULSE 72; RESP 16; O2SAT 97
[2025-02-19 09:00] VITALS: BP 100/57; PULSE 72; RESP 16; TEMP 98.6; O2SAT 97
[2025-02-19 13:01] VITALS: BP 101/59; PULSE 86; RESP 14; TEMP 98.2; O2SAT 98
[2025-02-19 13:41] VITALS: BP 101/59; PULSE 86; RESP 14; TEMP 98.2; O2SAT 98
== END 2025-02-19 16:33 | disposition home or self-care (01) | DRG 547 ==
LOC: ER 10:56 → OVERFLOW 16:32 → CENTRAL 20:05
PROVIDERS: ADMIT Obstetrics & Gynecology; ATTEND Obstetrics & Gynecology
PROC: 0UB54ZZ Excision of Right Fallopian Tube, Percutaneous Endoscopic Approach (ICD-10-PCS; 2025-02-18)
PROC: 0UB14ZZ Excision of Left Ovary, Percutaneous Endoscopic Approach (ICD-10-PCS; 2025-02-18)
PROC: 10T24ZZ Resection of Products of Conception, Ectopic, Percutaneous Endoscopic Approach (ICD-10-PCS; principal; 2025-02-18 18:11)
DX: O00.101 Right tubal pregnancy without intrauterine pregnancy (principal); K66.1 Hemoperitoneum; G89.29 Other chronic pain; N83.202 Unspecified ovarian cyst, left side; Z80.3 Family history of malignant neoplasm of breast; Z83.3 Family history of diabetes mellitus
CPT/HCPCS: 36415; 71046; 76801; 80053; 81001; 84702; 85025; 85610; 85730; 86850; 86900; 86901; 86920; 96374; G0378; J0131; J0330; J1100; J1885; J2003; J2250; J2405; J3490